=== PATIENT | female | born 1975 | race Caucasian/White ===

== ENCOUNTER 2018-03-04 17:06 | Emergency (ER) | payer OTHER | END 2018-03-04 20:59 | disposition home or self-care (01) | LOC: FTE 17:06 | DX: S92.514A Nondisplaced fracture of proximal phalanx of right lesser toe(s), initial encounter for closed fracture (principal); W22.03XA Walked into furniture, initial encounter; Y92.9 Unspecified place or not applicable | CPT/HCPCS: 73630; 81025; 99283-25 ==

== ENCOUNTER 2018-04-10 08:48 | Emergency (ER) | payer OTHER ==
[2018-04-10 09:29] LABS: URINE PH (Dip) POC 7.5 (5.0-8.5)
[2018-04-10 09:29] LABS: URINE BLOOD (Dip) POC Trace-intact (NEGATIVE); URINE GLUCOSE (Dip) POC Negative (NEGATIVE); URINE KETONES (Dip) POC Negative (NEGATIVE); URINE LEUKOCYTE EST (Dip) POC 1+ (NEGATIVE); URINE NITRITE (Dip) POC Negative (NEGATIVE); URINE TOTAL PROTEIN POC Negative (NEGATIVE)
[2018-04-10] MEDS: KETOROLAC 60 MG INJ IM (09:45)
[2018-04-10] MEDS: ACETAMINOPHEN 500 MG TAB PO (09:57)
== END 2018-04-10 11:17 | disposition home or self-care (01) ==
LOC: FTE 08:48
DX: J10.1 Influenza due to other identified influenza virus with other respiratory manifestations (principal)
CPT/HCPCS: 71045; 81003; 81025; 87400; 96372; 99284-25